=== PATIENT | male | born 1960 | race American Indian/Alaskan Native ===

== ENCOUNTER 2021-09-15 06:02 | Observation (INO) | payer OTHER ==
[2021-09-10 11:10] LABS: Hematocrit 44.6 % (35.5-45.6); Hemoglobin 14.4 gm/dl (11.8-15.2); Mean Corpuscular HGB Conc 32 % (32-34); Mean Corpuscular Volume 93 fl (84-94); Platelet Count 190 K/mm3 (140-440); Red Cell Distribution Width 13.6 % (13.2-15.2)
[2021-09-10 11:33] LABS: Alanine Aminotransferase 19 units/L (7-56); Albumin 4.1 g/dL (3.9-5); BUN/Creatinine Ratio 17; Blood Urea Nitrogen 15 mg/dL (9-20); Hemolysis Index 6
--- NOTE | 2021-09-10 11:54 | Anesthesia Consultation ---
Anesthesia Consult and Med Hx Date of service: 09/15/21 - Airway Anesthetic Teeth Evaluation: Good ROM Head & Neck: Adequate Mental/Hyoid Distance: Adequate Mallampati Class: Class II Intubation Access Assessment: Probably Good - Pulmonary Exam CTA: Yes - Cardiac Exam Cardiac Exam: RRR - Pre-Operative Health Status ASA Pre-Surgery Classification: ASA2 Proposed Anesthetic Plan: General Nerve Block: TAP - Pulmonary Hx Smoking: No Hx Respiratory Symptoms: No Hx Sleep Apnea: Yes (+ CPAP) - Cardiovascular System Hx Hypertension: No Hx Heart Attack/AMI: No - Central Nervous System CVA: No - Endocrine Hx Renal Disease: No Hx Liver Disease: No Hx Insulin Dependent Diabetes: No Hx Non-Insulin Dependent Diabetes: No Hx Thyroid Disease: No - Other Systems Hx Cancer: Yes (prostate ca) - Additional Comments Anesthesia Medical History Comments: No hx anesthetic complicatons.
[~2021-09-15 06:02] MED LIST: ACETAMINOPHEN 500 MG TAB PO SCH; CELECOXIB 200 MG CAP PO NR; LACTATED RINGERS 1,000 ML IV SCH; MIDAZOLAM 2 MG/2 ML INJ IV NR; fentaNYL 100 MCG/2 ML INJ IV PRN
[2021-09-15] MEDS ORDERED: BACTERIOSTATIC SODIUM CHLORIDE 0.9% 30 ML VIAL INFILTRATI ONE (06:34)
[2021-09-15] MEDS ORDERED: BUPIVACAINE/PF (0.25%) 2.5 MG/ML 30 ML VIAL INFILTRATI ONE (07:19)
[2021-09-15] MEDS ORDERED: dexAMETHasone 4 MG/ML VIAL ONE (07:19)
[2021-09-15] MEDS ORDERED: propofoL 200 MG/20 ML VIAL IV ONE (07:28)
[2021-09-15] MEDS ORDERED: LIDOCAINE MPF (2%) 20 MG/1 ML VIAL 5 ML ONE (07:28)
[2021-09-15] MEDS ORDERED: ROCURONIUM 50 MG/5 ML INJ IV ONE ×2 (07:28→08:54)
[2021-09-15] MEDS ORDERED: HYDROmorphone 1 MG/1 ML INJ ONE ×2 (07:28→13:48)
[2021-09-15] MEDS ORDERED: METHYLENE BLUE 50 MG/10 ML AMP ONE (07:38)
[2021-09-15] MEDS ORDERED: ceFAZolin/STERILE WATER 2 GM/20 ML SYRINGE IV NR (08:00)
[2021-09-15] MEDS ORDERED: CITRIC ACID-SOD CITRATE 500 ML IV ONE (08:07)
[2021-09-15] MEDS ORDERED: CALCIUM CHLORIDE 1,000 MG/10 ML SYRINGE IV ONE ×2 (08:07→09:05)
[2021-09-15] MEDS ORDERED: THROMBIN (RECOMBINANT) 5,000 UNIT VIAL TP ONE ×2 (08:08→09:06)
[2021-09-15] MEDS ORDERED: ePHEDrine SULFATE 50 MG/1 ML INJ ONE (08:38)
[2021-09-15] MEDS ORDERED: SODIUM CHLORIDE 0.9% IRRIG SOLN 2000 ML IR ONE (09:05)
[2021-09-15] MEDS ORDERED: CITRIC ACID-SOD CITRATE SOLN 500 ML IV SOLN IV ONE (09:05)
[2021-09-15] MEDS ORDERED: WATER FOR IRRIG STERILE 1,500 ML BOTTLE IR ONE (09:06)
[2021-09-15] MEDS ORDERED: ONDANSETRON 4 MG/2 ML INJ ONE (11:02)
[2021-09-15] MEDS ORDERED: KETOROLAC 30 MG/1 ML INJ ONE (11:02)
[2021-09-15] MEDS ORDERED: NEOSTIGMINE 10MG/10 ML INJ MDV ONE (11:02)
[2021-09-15] MEDS ORDERED: GLYCOPYRROLATE 0.4 MG/2 ML INJ ONE (11:02)
[2021-09-15] MEDS ORDERED: LACTATED RINGERS 1,000 ML ONE (11:05)
[2021-09-15] MEDS ORDERED: ZOLPIDEM 5 MG TAB PO PRN (11:10)
[2021-09-15] MEDS ORDERED: ONDANSETRON 4 MG/2 ML INJ IV PRN (11:10)
[2021-09-15] MEDS ORDERED: NALOXONE 0.4 MG/1 ML INJ IV PRN (11:10)
[2021-09-15] MEDS ORDERED: ACETAMINOPHEN 325 MG TAB PO PRN (11:10)
[2021-09-15] MEDS ORDERED: MORPHINE 4 MG/1 ML INJ IV PRN (11:10)
--- NOTE | 2021-09-15 11:10 | Short Stay Summary ---
Short Stay Documentation Date of service: 09/15/21 - History H&P: obtained from office - Allergies and Medications Current Medications: Allergies No Known Allergies Allergy (Unverified 09/05/21 14:34) Home Medications Medication Instructions Recorded Confirmed Last Taken Type No Known Home Medications [No 09/05/21 09/05/21 Unknown History Reported Home Medications] Active Medications Acetaminophen (Acetaminophen 500 Mg Tab) 1,000 mg PO PREOP JOSY Last Admin: 09/15/21 06:49 Dose: 1,000 mg Documented by: Cefazolin Sodium (Cefazolin/Sterile Water 2 Gm/20 Ml Syringe) 2 gm IV PREOP NR Stop: 09/15/21 20:00 Celecoxib (Celecoxib 200 Mg Cap) 200 mg PO PREOP NR Stop: 09/15/21 23:01 Last Admin: 09/15/21 06:49 Dose: 200 mg Documented by: Fentanyl (Fentanyl 100 Mcg/2 Ml Inj) 100 mcg IV ONCE PRN PRN Reason: sedation for nerve block Last Admin: 09/15/21 07:32 Dose: 100 mcg Documented by: Lactated Ringer's (Lactated Ringers) 1,000 mls @ 100 mls/hr IV DIRECT JOSY Stop: 09/15/21 23:59 Last Admin: 09/15/21 06:55 Dose: 100 mls/hr Documented by: Midazolam HCl (Midazolam 2 Mg/2 Ml Inj) 2 mg IV PREOP NR Stop: 09/15/21 23:01 Last Admin: 09/15/21 07:32 Dose: 2 mg Documented by: - Brief post op/procedure progress note Date of procedure: 09/15/21 Pre-op diagnosis: prostate cancer Post-op diagnosis: other (urethral stricture) Procedure: robotic prostatectomy, stem cell implant, bladder neck suspension Anesthesia: GETA Surgeon: FARHAD HOBSON Estimated blood loss: other (450cc) Pathology: list Specimen disposition: to lab Condition: stable - Hospital course Hospital course: NO COMPLIANTS NO FOOD GIVEN YESTERDAY---NURSE TO GET FOOD TODAY SARA YOLANDA DONE HOME WITH VALDES PT HAS MEDICATIONS - Disposition Condition at discharge: Stable Short Stay Discharge Plan Follow up with: BOBBY BHATT MD [Primary Care Provider] - 7 Days
[2021-09-15] MEDS ORDERED: LACTATED RINGERS 1,000 ML IV SCH (11:15)
--- NOTE | 2021-09-15 12:18 | Operative Report ---
DATE OF SURGERY: 09/15/2021 PREOPERATIVE DIAGNOSIS: Prostate cancer, [place] 7. POSTOPERATIVE DIAGNOSES: Prostate cancer, [place] 7; urethral stricture. PROCEDURE: Robotic-assisted laparoscopic prostatectomy, stem cell placement, urethral dilatation, bladder neck suspension. SURGEON: Alessio Tellez MD ENGINEER STEAM: Madhuri Gardner. ANESTHESIA: General. ESTIMATED BLOOD LOSS: 500 mL FLUIDS: Crystalloid, Cell Saver. DRAINS: A Rico-Alonso drain x1. COMPLICATIONS: No complications. INDICATIONS: This patient is a 61-year-old gentleman, seen in the office for a PSA of 5 with second opinion. First Urologist was Dr. Whelan. He was on active surveillance for a year or so. His PSA started to rise. He presents for a second opinion. Risks, benefits, complications were explained and mentioned to the patient. Recommend treatment with either radical prostatectomy versus radiation therapy. The patient and his agreed to proceed with surgical intervention. Risks, benefits and complications were explained. DESCRIPTION OF PROCEDURE: The patient was taken to the operative suite, placed in a supine position. After adequate general anesthesia, he was placed in the modified dorsal lithotomy position, prepped and draped in a sterile fashion. Madhuri Gardner was present at the bedside as a surgical services asst throughout the procedure. Attempts to place Peters catheter was unsuccessful due to just proximal blockage. A 0.035 Glidewire was placed and 16-Swedish circle tip catheter. I was able to dilate the stricture and advance the catheter into the bladder without difficulty. Ell[place]-tinged urine return was noted. 1 cm supraumbilical incision was made. Towel clips were placed. A Veress needle was used for drop test, which was negative. Opening pressure was 3 cm of water. Insufflation to 15 cm of water was performed. A 15 cm cephalad to the pubic symphysis was marked in the midline. Additional 9 cm and again 9 cm lateral was marked to allow for placement of the 8 mm robotic ports. 0-degree lens was used to place the 10 mm supraumbilical port under direct vision. No signs of bleeding or metastasis could be appreciated. The other ports were placed under direct vision without difficulty. A 10 mm helper port on the right as well as a 5 mm helper port on the right was performed. The patient was placed in an exaggerated dorsal lithotomy position. Robotic cart was docked between the legs without difficulty. A 0-degree lens was used for the procedure. Second arch was scored behind the prostate and bladder. Dissection of the seminal vesicles and vas deferens was performed as well as dissection to the apex of the prostate. Vas deferens was transected bilaterally. Then, attention was taken to the anterior abdominal wall, which was scored lateral to the lateral umbilical ligament and then across the midline lateral bladder flap to drop. Dorsal vein complex was then controlled with a 60 mm vascular stapler without difficulty. The endopelvic fascia was opened and dissection of the prostate toward the bladder neck was performed using the katelyn in an athermal fashion. Bladder neck was transected anteriorly with a Bovie. Peters catheter could be appreciated. The balloon was deflated and it was pulled anteriorly for traction. 2-0 Vicryl was placed in the bladder neck used for manipulation. Posterior bladder neck was transected. Seminal vesicles and vas deferens could be appreciated. Right side, the neurovascular bundle with some dissection was able to be identified bilaterally and dissected free. A 60 mm vascular staple load was used on the right side to control a large endopelvic fascia. On the left side, the endopelvic fascia was dissected using an athermal fashion. Attention was then taken to the apex of the prostate, which was transected. Peters catheter was pulled out. Posterior aspect was transected and then dissected free. Prostate was placed in the EndoCatch bag without difficulty. No signs of rectal injury could be appreciated. Copious irrigation was performed. Adequate hemostasis was achieved. A 4 x 4 cm stem cell graft was laid on top of the rectum and the areas of the neurovascular bundle. Bladder neck reconstruction was then performed using a 2-0 Vicryl in interrupted fashion at the 5 o'clock and 7 o'clock positions. Double-armed V-Loc was then placed in the 6 o'clock position of the bladder neck, corresponding aspect of the urethra and a running stitch was placed bilaterally. A wire followed by 16-Swedish circle tip catheter was advanced into the bladder. Anastomosis was cinched down. A 15 mL of water in the balloon, irrigated pink-tinged. No clots. Bladder neck suspension was then performed, placing the V-Loc stitch into the posterior aspect of the pubic rami bilaterally. Platelet rich plasma as well as platelet poor plasma was injected around the urethra. A platelet membrane was placed as well. Rico-Alonso drain was brought out on the left side without difficulty and tied to the skin with a 2-0 silk. The patient was then placed in supine position. The cart was undocked. The supraumbilical incision was extended to allow removal of the prostate and was closed with 0 Vicryl in a [id number] fashion. Skin was closed with a 3-0 Vicryl in interrupted fashion. Peters catheter sideport was folded over, tied with 0 silk in interrupted fashion. The patient tolerated the procedure well and was extubated and taken to recovery room. He will be observed overnight and go home on Bactrim and Norden. TID: [id number] RECEIPT: [id number] KENDRICK/JUAREZ
[2021-09-15] MEDS: HYDROmorphone 1 MG/1 ML INJ IV PRN ×3 (13:50→21:30)
--- NOTE | 2021-09-15 16:37 | Anesthesia Day of Surgery ---
Anesthesia Day of Surgery - Day of Surgery Patient Examined: Yes Patient H&P Reviewed: Yes Patient is NPO: Yes
--- NOTE | 2021-09-15 16:38 | Post Anesthesia Evaluation ---
- Post Anesthesia Evaluation Patient Participated: Yes Airway Patent: Yes Stable Respiratory Function: Yes Nausea/Vomiting: No Temp > 96.8F: Yes Pain Manageable: Yes Adequeate Hydration: Yes Anesthesia Complications: No Block Receding Appropriately: Yes Patient on Ventilator: No
[2021-09-15] MEDS: ceFAZolin/NS 1 GM/50 ML 1 GM/50 ML BAG IV SCH (18:01)
[2021-09-16] MEDS: HYDROcodone/ACETAMINOPHEN 5-325 MG TAB PO PRN ×3 (02:59→14:06)
[2021-09-16] MEDS: ceFAZolin/NS 1 GM/50 ML 1 GM/50 ML BAG IV SCH (04:00)
[2021-09-16 12:29] VITALS: BP 133/84
== END 2021-09-16 14:58 | disposition home or self-care (01) ==
LOC: OR 06:02 → EDSTATUS 08:00 → 4A 11:38 → 3A 19:12
PROVIDERS: ADMIT Urology; ATTEND Urology
DX: C61 Malignant neoplasm of prostate (principal); Z20.822 Contact with and (suspected) exposure to COVID-19; M19.90 Unspecified osteoarthritis, unspecified site; Z79.899 Other long term (current) drug therapy; Z98.890 Other specified postprocedural states
CPT/HCPCS: 36415; 55866; 64450; 80053; 85027; 86850; 86900; 86901; 88309; 96365; 96366; 96375; C1769; G0378; J0690; J1100; J1170; J1815; J1885; J2250; J2405; J2704; J2710; J3010; J3490; J7120; Q4140; S2900; U0003; Q9968